=== PATIENT | female | born 1975 | race Caucasian/White ===

== ENCOUNTER 2018-07-17 18:31 | Emergency (ER) | payer SELFPAY ==
[2018-07-17 19:18] LABS: SQUAMOUS EPITHIAL 1 /hpf (0-5); URINE BILIRUBIN NEGATIVE (NEGATIVE); URINE BLOOD 3+ (NEGATIVE); URINE CLARITY Clear (Clear); URINE COLOR Yellow (YELLOW); URINE GLUCOSE (UA) NORMAL (Normal); URINE LEUKOCYTE ESTERASE NEG Leu/uL (Negative); URINE PROTEIN NEGATIVE (NEGATIVE); URINE UROBILINOGEN NORMAL mg/dL (0.2-1.0)
[2018-07-17 19:22] LABS: HCG,QUALITATIVE URINE NEGATIVE (NEGATIVE)
[2018-07-17] MEDS ORDERED: Sodium Chloride 0.9% 1,000 ML IV ONE (19:30)
--- NOTE | 2018-07-17 19:41 | C.PDOC ---
History Of Present Illness 43 y/o female presents to the ED complaining of vaginal bleeding and abdominal cramping for the last 2 weeks. Her periods are described as irregular. Patient reports PMHx of fibroids and states her current symptoms are similar to previous episodes. Otherwise patient denies any vaginal irritation, discharge, fever, chills, nausea, or vomiting. Time Seen by Provider: 07/17/18 19:30 Chief Complaint (Nursing): Female Genitourinary History Per: Patient History/Exam Limitations: no limitations Onset/Duration Of Symptoms: Days Current Symptoms Are (Timing): Still Present Severity: Mild Pain Scale Rating Of: 4 Quality Of Discomfort: "Pain" Associated Symptoms: denies: Nausea, Vomiting Recent travel outside of the [place]: No Abnormal Vaginal Bleeding: Yes Past Medical History Reviewed: Historical Data, Nursing Documentation, Vital Signs Vital Signs: Last Vital Signs Temp 98.5 F 07/17/18 18:35 Pulse 76 07/17/18 20:42 Resp 20 07/17/18 20:42 BP 147/92 H 07/17/18 20:42 Pulse Ox 99 07/17/18 20:42 - Medical History PMH: HTN Other PMH: Ovarian polyp Surgical History: Family History: States: No Known Family Hx - Social History Hx Tobacco Use: No Hx Alcohol Use: No Hx Substance Use: No - Immunization History Hx Tetanus Toxoid Vaccination: No Hx Influenza Vaccination: No Hx Pneumococcal Vaccination: No Review Of Systems Constitutional: Negative for: Fever, Chills Gastrointestinal: Positive for: Abdominal Pain. Negative for: Nausea, Vomiting Genitourinary: Positive for: Vaginal Bleeding. Negative for: Dysuria, Frequency , Incontinence, Vaginal Discharge Physical Exam - Physical Exam Appears: Non-toxic, No Acute Distress Skin: Warm, Dry Head: Normacephalic Eye(s): bilateral: Normal Inspection Oral Mucosa: Moist Neck: Trachea Midline, Supple Chest: Symmetrical Cardiovascular: Rhythm Regular Respiratory: No Rales, No Rhonchi, No Wheezing Gastrointestinal/Abdominal: Soft, Tenderness (Mild suprapubic tenderness), No Guarding, No Rebound Extremity: Bilateral: Atraumatic, Normal Color And Temperature, Normal ROM Pulses: Left Dorsalis Pedis: Normal, Right Dorsalis Pedis: Normal Neurological/Psych: Oriented x3 Gait: Steady ED Course And Treatment - Laboratory Results Result Diagrams: 07/17/18 19:53 07/17/18 19:53 O2 Sat by Pulse Oximetry: 97 (RA) Pulse Ox Interpretation: Normal Progress Note: Blood work and urine sent. Administered IV fluids. Ordered pelvic ultrasound. 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 - ok with provera for 5 days and follow up in clinic Reevaluation Time: 22:00 Reassessment Condition: Improved Disposition Counseled Patient/Family Regarding: Studies Performed, Diagnosis, Need For Followup - Disposition Referrals: Jeff Royal MD [Staff Provider] - Disposition: HOME/ ROUTINE Disposition Time: 19:40 Condition: FAIR Additional Instructions: Please follow up with your controls engineer Prescriptions: MedroxyPROGESTERone [Provera] 1 tab PO DAILY #5 tab Instructions: Uterine Fibroids, Ovarian Cysts Forms: [employer] (Yi) Print Language: SWEDISH - Clinical Impression Clinical Impression: Menometrorrhagia, Ovarian cyst, Uterine fibroid - Scribe Statement The provider has reviewed the documentation as recorded by the Scribe (Vero Mcmillan) Provider Attestation: All medical record entries made by the Scribe were at my direction and personally dictated by me. I have reviewed the chart and agree that the record accurately reflects my personal performance of the history, physical exam, medical decision making, and the department course for this patient. I have also personally directed, reviewed, and agree with the discharge instructions and disposition.
[2018-07-17 19:56] LABS: BASO # 0.1 K/uL (0.0-0.2); BASO % 1.1 % (0.0-2.0); EOS # 0.1 K/uL (0.0-0.7); HEMOGLOBIN 11.7 g/dL (11.0-16.0); LYMPH # 2.9 K/uL (1.0-4.3); LYMPH % 34.1 % (20.0-40.0); MEAN CELL VOLUME 90.1 fL (81.0-99.0); MEAN CORPUSCULAR HEMOGLOBIN 29.9 pg (27.0-31.0); MEAN CORPUSCULAR HGB CONC 33.2 g/dL (33.0-37.0); MEAN PLATELET VOLUME 9.7 fL (7.2-11.7); MONO # 0.6 K/uL (0.0-0.8); MONO % 7.7 % (0.0-10.0); NEUT # 4.7 K/uL (1.8-7.0); NEUT % 56.1 % (50.0-75.0); NRBC % 0.1 % (0.0-2.0); RBC 3.91 Mil/uL (3.80-5.20); WHITE BLOOD COUNT 8.4 K/uL (4.8-10.8)
[2018-07-17 20:07] LABS: INR 1.1; PROTHROMBIN TIME 12.1 SECONDS (9.7-12.2)
[2018-07-17 20:10] LABS: ALB/GLOB RATIO 1.2 (1.0-2.1); ALBUMIN 4.2 g/dL (3.5-5.0); ALT/SGPT 35 U/L (9-52); AST/SGOT 24 U/L (14-36); BLOOD UREA NITROGEN 13 mg/dL (7-17); CALCIUM 9.3 mg/dl (8.6-10.4); GFR NON-AFRICAN AMERICAN > 60
[2018-07-17 20:20] LABS: SQUAMOUS EPITHIAL 4 /hpf (0-5); URINE BILIRUBIN NEGATIVE (NEGATIVE); URINE BLOOD 3+ (NEGATIVE); URINE CLARITY Clear (Clear); URINE COLOR Yellow (YELLOW); URINE GLUCOSE (UA) NORMAL (Normal); URINE LEUKOCYTE ESTERASE NEG Leu/uL (Negative); URINE PROTEIN NEGATIVE (NEGATIVE); URINE UROBILINOGEN NORMAL mg/dL (0.2-1.0)
[2018-07-17 22:03] VITALS: O2SAT 97
[2018-07-17 22:17] VITALS: BP 131/81; PULSE 70; RESP 18; TEMP 98.2
--- NOTE | 2018-07-18 10:39 | US ---
Date of service: 07/17/2018 HISTORY: dub, fibroids COMPARISON: None available. TECHNIQUE: Real-time transabdominal pelvic ultrasound was performed. In addition a transvaginal pelvic ultrasound was necessary to better depict pelvic anatomy. FINDINGS: UTERUS: Measures 11.8 x 6.5 x 7.9 cm. Anteverted. Heterogeneous uterine echotexture. Two probable mid uterine fibroids measuring approximately 5 x 4 x 4 mm and 7 x 6 x 7 mm. ENDOMETRIUM: Measures 1.4 cm in diameter. There is vascular signal within the endometrial canal. CERVIX: No cervical abnormality identified. RIGHT OVARY: Measures 3.2 x 2.3 x 2.9 cm. Blood flow is demonstrated. LEFT OVARY: Measures 3.4 x 2.1 x 2.7 cm. Blood flow is demonstrated. 2.8 cm left para ovarian cyst. 1.5 cm left ovarian follicle. FREE FLUID: Small fluid in the cul-de-sac, likely physiologic. OTHER FINDINGS: None. IMPRESSION: Heterogeneous uterine echotexture. Two probable small mid uterine fibroids. Endometrial thickness, top-normal. Vascular signal noted within the endometrial canal. Gynecologic consultation may be considered if indicated. 2.8 cm left para ovarian cyst. 1.5 cm left ovarian cyst. Preliminary impression was provided by virtual radiologic.
== END 2018-07-17 22:17 | disposition home or self-care (01) ==
LOC: C.ER 18:31
DX: N92.1 Excessive and frequent menstruation with irregular cycle (principal); D25.9 Leiomyoma of uterus, unspecified; N83.202 Unspecified ovarian cyst, left side; I10 Essential (primary) hypertension
CPT/HCPCS: 76830; 76856; 80053; 81001; 84703; 85025; 85610; 85730; 86850; 86900; 96360; 99285; J7030

== ENCOUNTER 2018-08-01 15:18 | Emergency (ER) | payer MEDICAID ==
[2018-08-01] MEDS ORDERED: Sodium Chloride 0.9% 1,000 ML IV ONE (16:04)
--- NOTE | 2018-08-01 16:06 | C.PDOC ---
History Of Present Illness 43 yo female w/previous hx of DUB, come in for evaluation of vaginal bleeding developed for past 5 days. Pt reports, " bleeding is significant, with clots" associated with diffuse lower abdominal cramping. Pt admits, had similar sx of profuse vag bleeding in past, when pt was seen here in ED on 07/17/18, "was given oral pills that stopped vaginal bleeding for few weeks and now it started again". Otherwise, pt denies fever, chills, headache, dizziness, weakness, vertigo, CP, SOB, dypsnea, palpitation, V/D, back pain, UTI sx. Pt admits, has hx of irregular menstrual period, last normal period recall in 02/2018. Pt denies recent / or any other [employer] procedures. Time Seen by Provider: 08/01/18 16:00 Chief Complaint (Nursing): Female Genitourinary History Per: Patient Past Medical History Reviewed: Historical Data, Nursing Documentation, Vital Signs Vital Signs: Last Vital Signs Temp 98.2 F 08/01/18 15:29 Pulse 83 08/01/18 15:29 Resp 20 08/01/18 15:29 BP 128/76 08/01/18 15:29 Pulse Ox 98 08/01/18 15:29 - Medical History PMH: HTN Other PMH: Obese Surgical History: Family History: States: No Known Family Hx - Social History Hx Tobacco Use: No Hx Alcohol Use: No Hx Substance Use: No - Immunization History Hx Tetanus Toxoid Vaccination: No Hx Influenza Vaccination: No Hx Pneumococcal Vaccination: No Review Of Systems Except As Marked, All Systems Reviewed And Found Negative. Constitutional: Negative for: Fever, Chills Eyes: Negative for: Vision Change ENT: Negative for: Nose Congestion, Mouth Swelling, Throat Pain, Throat Swelling Cardiovascular: Negative for: Chest Pain, Palpitations, Orthopnea, Edema, Light Headedness Respiratory: Negative for: Cough, Shortness of Breath, Wheezing Gastrointestinal: Positive for: Abdominal Pain. Negative for: Nausea, Vomiting, Diarrhea Genitourinary: Positive for: Vaginal Bleeding Musculoskeletal: Negative for: Neck Pain, Back Pain Neurological: Negative for: Weakness, Numbness, Altered Mental Status, Headache, Dizziness Physical Exam - Physical Exam Appears: Well, Non-toxic, No Acute Distress Skin: Normal Color, Warm, Dry, No Diaphoretic, No Pale, No Rash Head: Normacephalic Eye(s): bilateral: PERRL Nose: No Flaring Oral Mucosa: Moist Tongue: Normal Appearing Throat: No Erythema, No Drooling Neck: Normal ROM, Trachea Midline, Supple Cardiovascular: Rhythm Regular, No Murmur, No JVD Respiratory: No Decreased Breath Sounds, No Accessory Muscle Use, No Stridor, No Wheezing Gastrointestinal/Abdominal: Soft, No Tenderness, No Distention, No Guarding, No Rebound Back: No CVA Tenderness Extremity: Normal ROM, No Deformity, No Swelling Neurological/Psych: Oriented x3, Normal Speech ED Course And Treatment - Laboratory Results Result Diagrams: 08/01/18 16:24 08/01/18 16:24 Lab Interpretation: Normal O2 Sat by Pulse Oximetry: 98 Pulse Ox Interpretation: Normal - CT Scan/US Transvaginal US Other Rad Studies (CT/US): Read By Radiologist CT/US Interpretation: IMPRESSION: Heterogeneous uterine echotexture. Two probable uterine fibroids. Left ovarian cysts. Vascular signal re-identified within the endometrium. Correlate clinically including gynecologic consultation and suggest follow-up if indicated with hysteroscopy. . Progress Note: Previous records from 07/14/18 review when pt was seen du eto same complaints. Blood work normal, US- no acute findings. Pt was OBS in ED for 3 hours and remained stable. On re-eval, pt is afebrile, hemodynamicaly stable. NOn-toxic. ENT:no acute findings. neck; Supple, (-) JVD, (-) carotid bruits b/l. CVS: (+)S1S2, reg, (-) murmur. Lungs: CTA B/L, BS equal B/L. ABd: benign, (-) guarding, (-) rebound. back: (-) CVA tenderness. Neuorlogicaly intact. Blood work review and appears baseline, no evidence of anemia or dehydration. UA- normal, Preg (-). US Transvaginal repeat and results review, compare to 07/17/18 and appears unchanged, " two probable uterine fibroids". results discussed with patient. Pt has clinical ifndings c/w DUB. Pt admits, has scheduled [employer] appoitment in 3 days. Pt advise dand ref. to f/u with [employer] as scheduled for further eval and tx. return to ED if any worsening or new changes. Disposition Counseled Patient/Family Regarding: Studies Performed, Diagnosis, Need For Followup - Disposition [facility] Disposition: HOME/ ROUTINE Disposition Time: 17:57 Condition: STABLE Additional Instructions: Encourage fluids Follow up with [employer] as scheduled in 3 days for re-evaluation. return to ED if any worsening or new changes. Instructions: Heavy Periods Forms: [employer] (Kazakh) Print Language: VINCENTIAN - Clinical Impression Clinical Impression: DUB (dysfunctional uterine bleeding)
[2018-08-01] MEDS ORDERED: Sodium Chloride 0.9% 1,000 ML ONE (16:11)
[2018-08-01 16:29] LABS: BASO % 0.3 % (0.0-2.0); EOS # 0.1 K/uL (0.0-0.7); EOS % 1.1 % (0.0-4.0); HEMOGLOBIN 12.1 g/dL (11.0-16.0); LYMPH # 3.3 K/uL (1.0-4.3); LYMPH % 32.2 % (20.0-40.0); MEAN CELL VOLUME 90.1 fL (81.0-99.0); MEAN CORPUSCULAR HEMOGLOBIN 31.3 pg (27.0-31.0); MEAN CORPUSCULAR HGB CONC 34.7 g/dL (33.0-37.0); MEAN PLATELET VOLUME 9.6 fL (7.2-11.7); MONO # 0.6 K/uL (0.0-0.8); MONO % 6.3 % (0.0-10.0); NEUT # 6.1 K/uL (1.8-7.0); NEUT % 60.1 % (50.0-75.0); NRBC % 0.1 % (0.0-2.0); RBC 3.87 Mil/uL (3.80-5.20); WHITE BLOOD COUNT 10.1 K/uL (4.8-10.8)
[2018-08-01 16:41] LABS: HCG,QUALITATIVE URINE NEGATIVE (NEGATIVE); URINE BACTERIA RARE (<OCC); URINE BILIRUBIN NEGATIVE (NEGATIVE); URINE BLOOD 3+ (NEGATIVE); URINE CLARITY Turbid (Clear); URINE COLOR Red (YELLOW); URINE GLUCOSE (UA) 1+ mg/dL (Normal); URINE LEUKOCYTE ESTERASE NEG Leu/uL (Negative); URINE PROTEIN 2+ mg/dL (NEGATIVE); URINE UROBILINOGEN NORMAL mg/dL (0.2-1.0)
[2018-08-01 16:44] LABS: INR 1.1; PROTHROMBIN TIME 11.7 SECONDS (9.7-12.2)
[2018-08-01 16:45] LABS: ALB/GLOB RATIO 1.4 (1.0-2.1); ALBUMIN 4.5 g/dL (3.5-5.0); ALT/SGPT 34 U/L (9-52); AST/SGOT 25 U/L (14-36); BLOOD UREA NITROGEN 11 mg/dL (7-17); CALCIUM 9.7 mg/dl (8.6-10.4); GFR NON-AFRICAN AMERICAN > 60
--- NOTE | 2018-08-01 17:47 | US ---
Date of service: 08/01/2018 HISTORY: vaginal bleeding COMPARISON: Pelvic ultrasound performed 07/17/18 TECHNIQUE: Real-time transabdominal pelvic ultrasound was performed. In addition a transvaginal pelvic ultrasound was necessary to better depict pelvic anatomy. FINDINGS: UTERUS: Measures 12.5 x 7.4 x 8.0 cm. Anteverted. 1.0 x 1.0 x 1.1 cm posterior mid uterine fibroid and 0.6 x 0.5 x 0.5 cm anterior mid uterine fibroid ENDOMETRIUM: Measures 1.4 cm in diameter. Evidence of increased vascularity. CERVIX: No cervical abnormality identified. RIGHT OVARY: Measures 3.1 x 1.6 x 2.6 cm. Blood flow is demonstrated. 9 mm follicle. LEFT OVARY: Measures 6.7 x 3.2 x 5.9 cm. Blood flow is demonstrated. 3.6 x 2.7 x 3.0 cm and 2.9 x 2.5 x 2.6 cm follicles/cysts. FREE FLUID: No significant free fluid noted. OTHER FINDINGS: None. IMPRESSION: Heterogeneous uterine echotexture. Two probable uterine fibroids. Left ovarian cysts. Vascular signal re-identified within the endometrium. Correlate clinically including gynecologic consultation and suggest follow-up if indicated with hysteroscopy.
[2018-08-01 18:27] VITALS: BP 119/67; PULSE 69; RESP 18; TEMP 98; O2SAT 100
== END 2018-08-01 18:27 | disposition home or self-care (01) ==
LOC: C.ER 15:18
DX: N93.8 Other specified abnormal uterine and vaginal bleeding (principal); I10 Essential (primary) hypertension
CPT/HCPCS: 76830; 76856; 80053; 81001; 84703; 85025; 85610; 85730; 96360; 99284; J7030